=== PATIENT | male | born 1965 | race Caucasian/White ===

== ENCOUNTER 2021-10-12 03:40 | Inpatient (IN) | payer MEDICAID ==
[~2021-10-12] VITALS: Ht 180.3 cm; Wt 113.8 kg
[~2021-10-12 03:40] MED LIST: LOSA1TAB2 PO
[2021-10-13] MEDS ORDERED: ZOLPIDEM TARTRATE 10 MG TABLET PO PRN (17:00)
[2021-10-13] MEDS ORDERED: HALOPERIDOL 5 MG TABLET PO PRN (17:00)
[2021-10-13] MEDS ORDERED: LORazepam 2 MG TABLET PO PRN (17:00)
[2021-10-13 19:36] VITALS: BP 151/97
[2021-10-14 05:38] VITALS: BP 160/99
[2021-10-14] MEDS: ARIPiprazole 5 MG TABLET PO SCH (09:19)
[2021-10-14] MEDS: AMILoride HCL 5 MG TABLET PO SCH (09:19)
[2021-10-14] MEDS: FAMOTIDINE 20 MG TABLET PO SCH (09:19)
[2021-10-14] MEDS: DOCUSATE SODIUM 100 MG CAPSULE PO SCH ×2 (09:19→16:53)
[2021-10-14 16:00] VITALS: BP 152/94
[2021-10-15 05:45] VITALS: BP 155/100
[2021-10-15] MEDS: ARIPiprazole 5 MG TABLET PO SCH (08:06)
[2021-10-15] MEDS: FAMOTIDINE 20 MG TABLET PO SCH (08:06)
[2021-10-15] MEDS: DOCUSATE SODIUM 100 MG CAPSULE PO SCH ×2 (08:06→16:13)
[2021-10-15] MEDS: AMILoride HCL 5 MG TABLET PO SCH (08:07)
[2021-10-15 16:44] VITALS: BP 145/90
[2021-10-16 08:00] VITALS: BP 148/90
[2021-10-16] MEDS: FAMOTIDINE 20 MG TABLET PO SCH (08:44)
[2021-10-16] MEDS: AMILoride HCL 5 MG TABLET PO SCH (08:44)
[2021-10-16] MEDS: ARIPiprazole 5 MG TABLET PO SCH (08:44)
[2021-10-16] MEDS: DOCUSATE SODIUM 100 MG CAPSULE PO SCH ×2 (08:44→16:36)
[2021-10-16 16:32] VITALS: BP 153/102
[2021-10-17 08:02] VITALS: BP 164/118
[2021-10-17 08:45] VITALS: BP 159/110
[2021-10-17] MEDS: ARIPiprazole 5 MG TABLET PO SCH (08:54)
[2021-10-17] MEDS: AMILoride HCL 5 MG TABLET PO SCH (08:54)
[2021-10-17] MEDS: DOCUSATE SODIUM 100 MG CAPSULE PO SCH ×2 (08:54→16:29)
[2021-10-17] MEDS: FAMOTIDINE 20 MG TABLET PO SCH (08:54)
[2021-10-17] MEDS ORDERED: GuaiFENesin/D-METHORPHAN [SUGAR-FREE] 200-20MG/10 ML SYRUP UDCUP PO PRN (09:15)
[2021-10-17] MEDS ORDERED: ACETAMINOPHEN 325 MG TABLET PO PRN (09:15)
[2021-10-17] MEDS ORDERED: ONDANSETRON HCL 4 MG TABLET PO PRN (09:15)
[2021-10-17] MEDS ORDERED: IBUPROFEN 400 MG TABLET PO PRN (09:15)
[2021-10-17] MEDS ORDERED: ALBUTEROL SULFATE HFA 90 MCG/PUFF 8 GM INHALER IH PRN (09:15)
[2021-10-17] MEDS ORDERED: MAGNESIUM HYDROXIDE SUSPENSION 30 ML UDCUP PO PRN (09:15)
[2021-10-17] MEDS ORDERED: DOCUSATE SODIUM 100 MG CAPSULE PO PRN (09:15)
[2021-10-17] MEDS ORDERED: NICOTINE 14 MG/24 HOUR PATCH TD PRN (09:15)
[2021-10-17] MEDS ORDERED: PETROLATUM,WHITE 28 GM JELLY TP PRN (09:15)
[2021-10-17] MEDS ORDERED: CloNIDine HCL 0.1 MG TABLET PO PRN (09:15)
[2021-10-17] MEDS ORDERED: MAG HYDROX/AL HYDROX/SIMETH ES 30 ML SUSPENSION UDCUP PO PRN (09:15)
[2021-10-17] MEDS ORDERED: LOPERAMIDE HCL 2 MG CAPSULE PO PRN (09:15)
[2021-10-17 16:00] VITALS: BP 136/99
[2021-10-18 08:00] VITALS: BP 143/100
[2021-10-18] MEDS: DOCUSATE SODIUM 100 MG CAPSULE PO SCH ×2 (08:37→16:06)
[2021-10-18] MEDS: ARIPiprazole 5 MG TABLET PO SCH (08:37)
[2021-10-18] MEDS: FAMOTIDINE 20 MG TABLET PO SCH (08:38)
[2021-10-18] MEDS: AMILoride HCL 5 MG TABLET PO SCH (08:38)
[2021-10-18 16:24] VITALS: BP 142/81
[2021-10-19] MEDS: ARIPiprazole 5 MG TABLET PO SCH (08:23)
[2021-10-19] MEDS: AMILoride HCL 5 MG TABLET PO SCH (08:23)
[2021-10-19] MEDS: FAMOTIDINE 20 MG TABLET PO SCH (08:24)
[2021-10-19] MEDS: DOCUSATE SODIUM 100 MG CAPSULE PO SCH ×2 (08:24→16:42)
[2021-10-19 09:30] VITALS: BP 100/54
[2021-10-19 15:39] LABS: COVID AG,FIA SOURCE NASAL SWAB
[2021-10-19 16:30] VITALS: BP 150/99
[2021-10-20] MEDS: FAMOTIDINE 20 MG TABLET PO SCH (08:36)
[2021-10-20] MEDS: AMILoride HCL 5 MG TABLET PO SCH (08:36)
[2021-10-20] MEDS: ARIPiprazole 5 MG TABLET PO SCH (08:36)
[2021-10-20] MEDS: DOCUSATE SODIUM 100 MG CAPSULE PO SCH ×2 (08:36→16:02)
[2021-10-20 09:32] VITALS: BP 151/106
[2021-10-20 16:51] VITALS: BP 121/89
[2021-10-21] MEDS: AMILoride HCL 5 MG TABLET PO SCH (08:34)
[2021-10-21] MEDS: ARIPiprazole 5 MG TABLET PO SCH (08:34)
[2021-10-21] MEDS: FAMOTIDINE 20 MG TABLET PO SCH (08:34)
[2021-10-21] MEDS: DOCUSATE SODIUM 100 MG CAPSULE PO SCH ×2 (09:00→16:56)
[2021-10-21 11:30] VITALS: BP 166/113
[2021-10-21] MEDS: AmLODIPine BESYLATE 5 MG TABLET PO SCH (12:02)
[2021-10-21 14:00] VITALS: BP 153/104
[2021-10-21 16:00] VITALS: BP 104/69
[2021-10-22] MEDS: AmLODIPine BESYLATE 5 MG TABLET PO SCH (09:02)
[2021-10-22] MEDS: DOCUSATE SODIUM 100 MG CAPSULE PO SCH ×2 (09:02→16:58)
[2021-10-22] MEDS: ARIPiprazole 5 MG TABLET PO SCH (09:02)
[2021-10-22] MEDS: FAMOTIDINE 20 MG TABLET PO SCH (09:02)
[2021-10-22] MEDS: AMILoride HCL 5 MG TABLET PO SCH (09:03)
[2021-10-22 09:24] VITALS: BP 140/90
[2021-10-22 16:30] VITALS: BP 142/83
[2021-10-23 08:30] VITALS: BP 126/97
[2021-10-23] MEDS: DOCUSATE SODIUM 100 MG CAPSULE PO SCH ×2 (08:45→16:10)
[2021-10-23] MEDS: FAMOTIDINE 20 MG TABLET PO SCH (08:45)
[2021-10-23] MEDS: AmLODIPine BESYLATE 5 MG TABLET PO SCH (08:45)
[2021-10-23] MEDS: AMILoride HCL 5 MG TABLET PO SCH (08:45)
[2021-10-23] MEDS: ARIPiprazole 5 MG TABLET PO SCH (08:45)
[2021-10-23 16:16] VITALS: BP 168/99
[2021-10-24 08:30] VITALS: BP 102/63
[2021-10-24] MEDS: AmLODIPine BESYLATE 5 MG TABLET PO SCH (08:38)
[2021-10-24] MEDS: FAMOTIDINE 20 MG TABLET PO SCH (08:38)
[2021-10-24] MEDS: AMILoride HCL 5 MG TABLET PO SCH (08:38)
[2021-10-24] MEDS: ARIPiprazole 5 MG TABLET PO SCH (08:38)
[2021-10-24] MEDS: DOCUSATE SODIUM 100 MG CAPSULE PO SCH ×2 (09:00→17:00)
[2021-10-24 16:00] VITALS: BP 139/93
[2021-10-24 16:51] VITALS: BP 110/75
[2021-10-25] MEDS: ARIPiprazole 5 MG TABLET PO SCH (09:06)
[2021-10-25] MEDS: FAMOTIDINE 20 MG TABLET PO SCH (09:06)
[2021-10-25] MEDS: AmLODIPine BESYLATE 5 MG TABLET PO SCH (09:06)
[2021-10-25] MEDS: AMILoride HCL 5 MG TABLET PO SCH (09:07)
[2021-10-25] MEDS: DOCUSATE SODIUM 100 MG CAPSULE PO SCH ×2 (09:07→16:41)
[2021-10-25 14:15] VITALS: BP 132/85
[2021-10-25 16:00] VITALS: BP 122/87
[2021-10-26] MEDS: DOCUSATE SODIUM 100 MG CAPSULE PO SCH ×2 (08:31→16:25)
[2021-10-26] MEDS: ARIPiprazole 5 MG TABLET PO SCH (08:31)
[2021-10-26] MEDS: FAMOTIDINE 20 MG TABLET PO SCH (08:31)
[2021-10-26] MEDS: AmLODIPine BESYLATE 5 MG TABLET PO SCH (08:31)
[2021-10-26] MEDS: AMILoride HCL 5 MG TABLET PO SCH (08:32)
[2021-10-26 08:49] VITALS: BP 140/90
[2021-10-26 15:14] LABS: COVID AG,FIA SOURCE NASAL SWAB
[2021-10-26 18:47] VITALS: BP 121/85
[2021-10-27 08:01] VITALS: BP 146/97
[2021-10-27] MEDS: AMILoride HCL 5 MG TABLET PO SCH (08:51)
[2021-10-27] MEDS: DOCUSATE SODIUM 100 MG CAPSULE PO SCH ×2 (08:51→16:32)
[2021-10-27] MEDS: ARIPiprazole 5 MG TABLET PO SCH (08:51)
[2021-10-27] MEDS: AmLODIPine BESYLATE 5 MG TABLET PO SCH (08:51)
[2021-10-27] MEDS: FAMOTIDINE 20 MG TABLET PO SCH (08:51)
[2021-10-27 16:00] VITALS: BP 149/88
[2021-10-27 16:48] VITALS: BP 149/88
[2021-10-28 08:00] VITALS: BP 149/80
[2021-10-28] MEDS: ARIPiprazole 5 MG TABLET PO SCH (08:46)
[2021-10-28] MEDS: DOCUSATE SODIUM 100 MG CAPSULE PO SCH ×2 (08:46→16:20)
[2021-10-28] MEDS: FAMOTIDINE 20 MG TABLET PO SCH (08:47)
[2021-10-28] MEDS: AMILoride HCL 5 MG TABLET PO SCH (08:47)
[2021-10-28] MEDS ORDERED: AmLODIPine BESYLATE 5 MG TABLET PO SCH (09:00)
[2021-10-28 09:27] LABS: BASOPHILS % (AUTO) 1.2 % (0.0-2.0); HEMOGLOBIN 14.8 g/dL (13.5-17.5); LYMPHOCYTES # (AUTO) 0.8 K/uL (1.0-4.8); LYMPHOCYTES % (AUTO) 14.7 % (22.0-44.0); MEAN CORPUSCULAR HEMOGLOBIN 30.6 pg (26.0-34.0); MEAN CORPUSCULAR HGB CONC 34.4 G/dL (31.0-37.0); MEAN CORPUSCULAR VOLUME 89 fL (80-100); MONOCYTES # (AUTO) 0.3 K/uL (0.1-1.0); MONOCYTES % (AUTO) 5.9 % (2.0-9.0); NEUTROPHILS # (AUTO) 3.7 K/uL (1.8-7.7); NEUTROPHILS % (AUTO) 72.2 % (40.0-70.0); PLATELET COUNT (AUTO) 298 K/uL (150-450); RED BLOOD CELL COUNT(AUTO) 4.83 MIL/uL (4.50-5.90); RED CELL DISTRIBUTION WIDTH 15.6 % (11.5-14.5)
[2021-10-28 09:37] LABS: ANION GAP 5 mmol/L (8-16); CALCIUM, TOTAL 9.3 mg/dL (8.8-10.5); CARBON DIOXIDE 29 mmol/L (22-29); CHLORIDE 104 mmol/L (98-107); CREATININE 1.25 mg/dL (0.60-1.30); GLOMERULAR FILTR. RATE CALC 60 mL/min (>60); GLUCOSE,RANDOM 84 mg/dL (70-110); POTASSIUM 4.7 mmol/L (3.5-5.1); SODIUM SERUM 138 mmol/L (136-145); UREA NITROGEN, BLOOD 26 mg/dL (7-18)
[2021-10-28 09:41] LABS: LITHIUM < 0.20 mmol/L (0.60-1.20)
[2021-10-28] MEDS ORDERED: ARIP5TAB37 PO ×2 (15:09→17:33)
[2021-10-28] MEDS ORDERED: FAMO20 PO (15:45)
[2021-10-28] MEDS ORDERED: AMLO-257 PO (15:45)
[2021-10-28] MEDS ORDERED: AMIL5TAB8 PO (15:45)
[2021-10-28] MEDS ORDERED: DOCU-385 PO (15:46)
== END 2021-10-28 16:25 | disposition home or self-care (01) | DRG 753 ==
LOC: 3EI 10-13 18:30
PROVIDERS: ADMIT Psychiatry & Neurology Psychiatry; ATTEND Psychiatry & Neurology Psychiatry
DX: F31.4 Bipolar disorder, current episode depressed, severe, without psychotic features (principal); R45.851 Suicidal ideations; F10.10 Alcohol abuse, uncomplicated; F41.9 Anxiety disorder, unspecified; Z20.822 Contact with and (suspected) exposure to COVID-19; I10 Essential (primary) hypertension; T56.891A Toxic effect of other metals, accidental (unintentional), initial encounter; R10.13 Epigastric pain; Y90.9 Presence of alcohol in blood, level not specified; Z59.00 Homelessness unspecified; Z79.899 Other long term (current) drug therapy; Y92.89 Other specified places as the place of occurrence of the external cause
CPT/HCPCS: 80048; 80178; 85025; 87081